=== PATIENT | female | born 1985 | race Caucasian/White ===

== ENCOUNTER 2019-01-30 15:32 | Emergency (ER) | payer OTHER ==
[~2019-01-30] VITALS: Ht 152.4 cm; Wt 63.5 kg
--- NOTE | 2019-01-30 15:59 | NUR ---
PT WALKED INTO EMERGENCY ROOM WITH C/C L EAR AND THROAT PAIN X 3 DAYS, ALSO C/O COUGH AND CONGESTION PT [facility]
[2019-01-30] MEDS ORDERED: ACETAMINOPHEN ES 500 MG TABLET ONE (16:09)
[2019-01-30] MEDS ORDERED: IBUPROFEN 600 MG TABLET PO ONE ×2 (16:10→16:30)
[2019-01-30 16:26] VITALS: BP 126/82
--- NOTE | 2019-01-30 16:27 | NUR ---
PT DISCHARGED TO HOME WITH ACI AND PRESCRIPTION WILL FOLLOW UP WITH PCP
[2019-01-30] MEDS ORDERED: ACETAMINOPHEN ES 500 MG TABLET PO ONE (16:30)
== END 2019-01-30 16:27 | disposition home or self-care (01) ==
LOC: ER 15:39
DX: H66.92 Otitis media, unspecified, left ear (principal)